=== PATIENT | male | born 1955 | race Caucasian/White ===

== ENCOUNTER 2017-12-20 11:07 | Emergency (ER) | payer OTHER ==
[~2017-12-20] VITALS: Ht 177.8 cm; Wt 78.0 kg
[~2017-12-20 11:07] MED LIST: ASPI325T PO; LISI40TA PO; OMEP20TA39 PO; ZOCO40TA PO
[2017-12-20 11:13] VITALS: BP 152/91; PULSE 84; RESP 16; TEMP 98.5; O2SAT 98
[2017-12-20] MEDS ORDERED: ASPI-146 PO (11:26)
[2017-12-20] MEDS ORDERED: LISI40TA PO (11:26)
[2017-12-20] MEDS ORDERED: GABA300C5 PO (11:26)
[2017-12-20] MEDS ORDERED: TRAM50TA PO (11:26)
[2017-12-20] MEDS ORDERED: OMEP40CA2 PO (11:26)
[2017-12-20] MEDS ORDERED: SIMV40TA PO (11:26)
[2017-12-20] MEDS ORDERED: IBUP1TAB7 PO (12:06)
[2017-12-20] MEDS ORDERED: ROBA750T PO (12:06)
--- NOTE | 2017-12-20 12:06 | PD ---
HPI Chief Complaint: Musculoskeletal Complaint Time Seen by Provider: 11:55 Travel History International Travel<30 days: No Contact w/Intl Traveler<30days: No Traveled to known affect area: No History of Present Illness HPI The 62-year-old male here with right sided low back pain that radiates into his gluteal region and posterior lateral thigh. Ongoing for 2 days. Similar symptoms in the past. Denies injury or trauma. No fever, chills, incontinence , saddle anesthesia, paresthesia or weakness of the extremity. No aggravating or alleviating factors. Symptom severity is moderate. PFSH Past Medical History Hx Anticoagulant Therapy: Yes Cardiovascular Problems: Yes (HTN) High Cholesterol: Yes GERD: Yes Hypertension: Yes Social History Alcohol Use: No Tobacco Use: No Substance Use: Yes (marijuana daily) Allergies-Medications (Allergen,Severity, Reaction): Coded Allergies: No Known Allergies (Unverified Adverse Reaction, Unknown, 12/20/17) Reported Meds & Prescriptions Reported Meds & Active Scripts Active Robaxin (Methocarbamol) 750 Mg Tab 750 Mg PO QID Ibuprofen 800 Mg Tab 800 Mg PO Q6HR PRN Reported Ecotrin Regular Strength (Aspirin) 325 Mg Tabdr 500 Mg PO DAILY Gabapentin 300 Mg Cap 300 Mg PO TID Omeprazole 40 Mg Cap 40 Mg PO DAILY Simvastatin 40 Mg Tab 40 Mg PO HS Tramadol (Tramadol HCl) 50 Mg Tab 50 Mg PO BID PRN Lisinopril 40 Mg Tab 40 Mg PO DAILY Review of Systems Except as stated in HPI: all other systems reviewed are Neg General / Constitutional: No: Fever Physical Exam Narrative GENERAL: Alert and well-appearing 62-year-old male SKIN: Warm and dry. HEAD: Normocephalic. EYES: No injection or drainage. NECK: Supple CARDIOVASCULAR: Regular rate and rhythm RESPIRATORY: Breath sounds equal bilaterally. No accessory muscle use. GASTROINTESTINAL: Abdomen soft, non-tender, nondistended. MUSCULOSKELETAL: No cyanosis, or edema. Normal strength and sensation in the lower extremities. 2+ DTRs. Ambulating with a steady gait BACK: + Tenderness to the right sacroiliac joint into the right gluteal. Nontender spine. Without obvious deformity. No CVA tenderness. Data Data Last Documented VS Vital Signs Date Time Temp Pulse Resp B/P (MAP) Pulse Ox O2 Delivery O2 Flow Rate FiO2 12/20/17 11:13 98.5 84 16 152/91 (111) 98 Orders Orders Ketorolac Inj (Toradol Inj) (12/20/17 12:15) MDM Medical Decision Making Medical Screen Exam Complete: Yes Emergency Medical Condition: Yes Differential Diagnosis Sciatica, herniated disc, lumbar strain, DJD Narrative Course The 62-year-old male here with right sided low back pain that radiates into his gluteal region and posterior lateral thigh. He has normal neurologic exam. He will be treated for sciatica. Diagnosis Primary Impression: Sciatica Qualified Codes: M54.31 - Sciatica, right side Referrals: Primary Care Physician Additional Instructions: Medication as directed. Avoid heavy lifting or strenuous activity. Follow-up with the primary doctor. Scripts Methocarbamol (Robaxin) 750 Mg Tab 750 MG PO QID for Muscle Spasm, #15 TAB 0 Refills Prov: Nona James 12/20/17 Ibuprofen (Ibuprofen) 800 Mg Tab 800 MG PO Q6HR Y for PAIN, #40 TAB 0 Refills Prov: Nona James 12/20/17 Disposition: 01 DISCHARGE HOME Condition: Stable Nona James December 20, 2017 12:06
[2017-12-20] MEDS ORDERED: KETOROLAC TROMETHAMINE 60 MG/2 ML (IM) VIAL IM ONE (12:15)
== END 2017-12-20 12:19 | disposition home or self-care (01) ==
LOC: PHEFT 11:07
DX: M54.41 Lumbago with sciatica, right side (principal); I10 Essential (primary) hypertension; E78.00 Pure hypercholesterolemia, unspecified; K21.9 Gastro-esophageal reflux disease without esophagitis; F12.90 Cannabis use, unspecified, uncomplicated; Z79.899 Other long term (current) drug therapy
CPT/HCPCS: 96372; 99283; J1885